=== PATIENT | female | born 1995 | race African-American/Black ===

== ENCOUNTER 2021-05-25 11:34 | Emergency (ER) | payer MEDICAID ==
[~2021-05-25] VITALS: Ht 167.6 cm; Wt 71.0 kg
[2021-05-25 11:36] VITALS: BP 123/75
== END 2021-05-25 13:25 | disposition home or self-care (01) ==
LOC: ER 11:34
DX: R07.89 Other chest pain (principal); J45.909 Unspecified asthma, uncomplicated
CPT/HCPCS: 71045; 81025; 93005; 99283